=== PATIENT | female | born 1985 | race Caucasian/White ===

== ENCOUNTER 2018-02-05 18:38 | Emergency (ER) | payer OTHER ==
[~2018-02-05] VITALS: Ht 170.2 cm; Wt 68.0 kg
[~2018-02-05 18:38] MED LIST: ALBU90OI INH; Pyridium200 MG PO
[2018-02-05] MEDS ORDERED: Cyclobenzaprine5 MG PO (20:31)
[2018-02-05] MEDS ORDERED: Ultram50 MG PO (20:32)
[2018-02-05] MEDS ORDERED: Robaxin500 MG PO (20:32)
== END 2018-02-05 20:38 | disposition home or self-care (01) ==
LOC: ER 18:38
DX: M54.5 Low back pain (principal); F17.210 Nicotine dependence, cigarettes, uncomplicated
CPT/HCPCS: 72100; 81000; 99283

== ENCOUNTER 2019-09-10 02:33 | Emergency (ER) | payer SELFPAY ==
[~2019-09-10] VITALS: Ht 170.2 cm; Wt 63.5 kg
[~2019-09-10 02:33] MED LIST changes: +Cyclobenzaprine5 MG PO; +Robaxin500 MG PO; +Ultram50 MG PO
[2019-09-10] MEDS ORDERED: ALBU90OI INH (04:52)
[2019-09-10] MEDS ORDERED: BENZ100A PO (04:52)
== END 2019-09-10 05:00 | disposition home or self-care (01) ==
LOC: ER 02:33
DX: R05 Cough (principal); F17.200 Nicotine dependence, unspecified, uncomplicated
CPT/HCPCS: 71046; 99283-25

== ENCOUNTER 2021-09-17 11:10 | Emergency (ER) | payer OTHER ==
[~2021-09-17] VITALS: Ht 170.2 cm; Wt 63.5 kg
[~2021-09-17 11:10] MED LIST changes: +BENZ100A PO
[2021-09-17] MEDS ORDERED: PRED20 PO (11:42)
== END 2021-09-17 11:58 | disposition home or self-care (01) ==
LOC: ER 11:10
DX: L23.7 Allergic contact dermatitis due to plants, except food (principal); F17.200 Nicotine dependence, unspecified, uncomplicated
CPT/HCPCS: 99282